=== PATIENT | female | born 1945 | race African-American/Black ===

== ENCOUNTER 2021-07-10 04:14 | Day surgery (SDC) | payer OTHER ==
[2021-07-05 12:07] VITALS: BMI 35.0
[2021-07-10 08:07] VITALS: PULSE 63; TEMP 97.5
[2021-07-10 08:31] VITALS: BP 148/73
== END 2021-07-10 10:50 | disposition home or self-care (01) ==
LOC: UNDOADMIN 04:14 → JASU-SURG 04:14 → J2C 04:14 → EDSTATUS 08:15 → UNDODISIN 10:50 → JASU-SURG 10:50
PROVIDERS: ATTEND Surgery
PROC: 0HBT0ZZ Excision of Right Breast, Open Approach (ICD-10-PCS; principal; 2021-07-10)
DX: D05.11 Intraductal carcinoma in situ of right breast (principal); Z53.8 Procedure and treatment not carried out for other reasons
CPT/HCPCS: 77065-TC; 82962; G0279-TC

== ENCOUNTER → 2021-07-12 | Day surgery (SDC) | payer OTHER | END | disposition home or self-care (01) | LOC: FMAMMOTONE 08:51 | PROVIDERS: ATTEND Surgery | PROC: 0HBT3ZX Excision of Right Breast, Percutaneous Approach, Diagnostic (ICD-10-PCS; principal; 2021-07-12) | DX: D24.1 Benign neoplasm of right breast (principal); N60.31 Fibrosclerosis of right breast; N60.81 Other benign mammary dysplasias of right breast; N64.89 Other specified disorders of breast; R92.8 Other abnormal and inconclusive findings on diagnostic imaging of breast | CPT/HCPCS: 19081; 19082; 76098-TC-FY; 87899; 88305-TC; A4648 ==

== ENCOUNTER 2021-08-07 04:28 | Inpatient (IN) | payer OTHER ==
[2021-07-31 13:23] VITALS: BMI 35.0
[2021-08-07] MEDS ORDERED: ISOSULFAN BLUE 50 MG/5 ML VIAL SQ ONE (09:06)
[2021-08-07] MEDS ORDERED: LIDOCAINE HCL 1%, 10 MG/ML (20ML VIAL) ONE (09:06)
[2021-08-07] MEDS ORDERED: DEXAMETHASONE SOD PHOSPHATE 4 MG/1 ML VIAL ONE (09:09)
[2021-08-07] MEDS ORDERED: PROPOFOL 20 ML ONE (09:09)
[2021-08-07] MEDS ORDERED: LIDOCAINE HCL/PF 2% SDV 5ML VIAL ONE (09:09)
[2021-08-07] MEDS ORDERED: ONDANSETRON 4 MG/2 ML VIAL ONE (09:09)
[2021-08-07] MEDS ORDERED: ROCURONIUM BROMIDE 100 MG/10 ML VIAL ONE (10:55)
[2021-08-07] MEDS ORDERED: ceFAZolin SODIUM 1 GM VIAL ONE (11:02)
[2021-08-07] MEDS ORDERED: ceFAZolin SODIUM 1 GM VIAL IVPB ONE (11:08)
[2021-08-07] MEDS ORDERED: FENTANYL CITRATE/PF 50 MCG/ML VIAL ONE (11:14)
[2021-08-07] MEDS ORDERED: HYDROmorphone HCl 2 MG/ML VIAL ONE (12:24)
[2021-08-07] MEDS ORDERED: ONDANSETRON 4 MG/2 ML VIAL IVPUSH PRN (14:25)
[2021-08-07] MEDS ORDERED: oxyCODONE HCL 5 MG TABLET PO PRN (14:25)
[2021-08-07] MEDS ORDERED: LACTATED RINGERS SOLUTION 1,000 ML IV SCH (14:30)
[2021-08-07] MEDS ORDERED: ACETAMINOPHEN 1000 MG/100 ML BAG IVPB SCH (14:30)
[2021-08-07 19:52] VITALS: BP 126/71; PULSE 77; TEMP 98.6
== END 2021-08-07 19:25 | disposition home or self-care (01) | DRG 581 ==
LOC: J2C 04:28 → EDSTATUS 09:30
PROVIDERS: ADMIT Surgery; ATTEND Surgery
PROC: 07B50ZX Excision of Right Axillary Lymphatic, Open Approach, Diagnostic (ICD-10-PCS; principal; 2021-08-07 09:30)
PROC: 0HBT0ZZ Excision of Right Breast, Open Approach (ICD-10-PCS; 2021-08-07 09:30)
PROC: 0H0V0ZZ Alteration of Bilateral Breast, Open Approach (ICD-10-PCS; 2021-08-07 09:30)
DX: D05.11 Intraductal carcinoma in situ of right breast (principal); I10 Essential (primary) hypertension; E11.9 Type 2 diabetes mellitus without complications; E66.9 Obesity, unspecified; E78.5 Hyperlipidemia, unspecified; Z68.35 Body mass index [BMI] 35.0-35.9, adult
CPT/HCPCS: 19281; 76098-TC-FY; 78195-TC; 82962; 88305-TC; 88307-TC; 88341-TC; 94760; A9541

== ENCOUNTER 2021-09-14 04:08 | Day surgery (SDC) | payer OTHER ==
[2021-09-08 14:20] VITALS: BMI 34.3
[2021-09-14] MEDS ORDERED: LIDOCAINE HCL 1%, 10 MG/ML (20ML VIAL) ONE (07:36)
[2021-09-14] MEDS ORDERED: PROPOFOL 20 ML ONE (08:21)
[2021-09-14] MEDS ORDERED: ROCURONIUM BROMIDE 50 MG/5 ML SYRINGE ONE (08:22)
[2021-09-14] MEDS ORDERED: MIDAZOLAM HCL 2 MG/2 ML SINGLE DOSE VIAL ONE ×2 (08:22)
[2021-09-14] MEDS ORDERED: ceFAZolin SODIUM 1 GM VIAL IVPB ONE (09:25)
[2021-09-14] MEDS ORDERED: ePHEDrine SULFATE 50 MG/1 ML AMPULE ONE (09:46)
[2021-09-14] MEDS ORDERED: KETOROLAC TROMETHAMINE 30 MG/1 ML VIAL ONE (09:46)
[2021-09-14] MEDS ORDERED: DEXAMETHASONE SOD PHOSPHATE 4 MG/1 ML VIAL ONE (09:46)
[2021-09-14] MEDS ORDERED: ceFAZolin SODIUM 1 GM VIAL ONE (09:46)
[2021-09-14] MEDS ORDERED: NEOSTIGMINE METHYLSULFATE 0.5 MG/ML - 10 ML MDV ONE (10:06)
[2021-09-14] MEDS ORDERED: GLYCOPYRROLATE 0.2 MG/1 ML VIAL ONE (10:06)
[2021-09-14] MEDS ORDERED: ONDANSETRON 4 MG/2 ML VIAL IVPUSH PRN (10:40)
[2021-09-14] MEDS ORDERED: oxyCODONE HCL 5 MG TABLET PO PRN (10:40)
[2021-09-14] MEDS ORDERED: ACETAMINOPHEN 1000 MG/100 ML BAG IVPB ONE (10:41)
[2021-09-14] MEDS ORDERED: LACTATED RINGERS SOLUTION 1,000 ML IV SCH (10:45)
[2021-09-14 12:51] VITALS: TEMP 98.9
[2021-09-14 14:15] VITALS: BP 128/67; PULSE 58
== END 2021-09-14 14:14 | disposition home or self-care (01) ==
LOC: JASU-SURG 04:08
PROVIDERS: ATTEND Surgery
PROC: 0HBT0ZZ Excision of Right Breast, Open Approach (ICD-10-PCS; principal; 2021-09-14 09:00)
DX: C50.911 Malignant neoplasm of unspecified site of right female breast (principal); I10 Essential (primary) hypertension; E11.9 Type 2 diabetes mellitus without complications; Z79.84 Long term (current) use of oral hypoglycemic drugs
CPT/HCPCS: 82962; 86850; 86900; 86901; 88307-TC; 94760